=== PATIENT | female | born 1945 | race Two or more races ===

== ENCOUNTER 2016-06-29 17:07 | Emergency (ER) | payer OTHER ==
[~2016-06-29] VITALS: Ht 149.9 cm; Wt 55.8 kg
[2016-06-29 18:31] VITALS: BP 141/59
[2016-06-29] MEDS ORDERED: TYLENOL EXTRA500 MG ORAL (18:59)
--- NOTE | 2016-06-29 18:59 | Emergency Room Report ---
History of Present Illness General Chief Complaint: Head Injury Source: Patient Present Illness HPI 71-year-old female presents to emergency Department complaining of 8 of 10 in severity headache localized to the left frontal area, in addition to dizziness status post head injury while at work. Patient reports that she was kicked in the head by a large kickball she experienced dizziness and headache shortly after denies nausea or vomiting. Patient denies taking blood thinning medications. Patient has a history of hypertension, and high cholesterol. Pt reports being given two advil at work and that she believes it made her VASQUEZ worse. Patient denies weakness in the extremities, loss of consciousness, or bleeding. Denies numbness tingling or loss of sensation or gross motor movements of the extremities, incontinence of bowel or bladder. Denies CP, Palpitations, LOC, AMS, dizziness, Changes in Vision, Sensation, paresthesias, or a sudden severe headache. Pt also complains of cough x 4 days with mild phlegm intermittently, denies fevers or chills, reports runny nose. Allergies: Coded Allergies: ALCOHOL (Verified Allergy, Unknown, 06/29/16) IODINE (Verified Allergy, Unknown, 06/29/16) SULFA (SULFONAMIDE ANTIBIOTICS) (Unverified Allergy, Unknown, 06/29/16) Uncoded Allergies: SULFA (Allergy, Unknown, 06/29/16) Patient History Past Medical History: see triage record Past Surgical History: none Pertinent Family History: none Immunizations: UTD Reviewed Nursing Documentation: PMH: Agreed, PSxH: Agreed Nursing Documentation-PMH Past Medical History: No History, Except For Hx Hypertension: Yes Hx Diabetes: No Hx Neurological Problems: Yes - Neuropathy Review of Systems All Other Systems: negative except mentioned in HPI Physical Exam Vital Signs Date Time Temp Pulse Resp B/P Pulse Ox O2 Delivery O2 Flow Rate FiO2 06/29/16 17:20 97.5 72 16 170/73 97 Room Air Sp02 EP Interpretation: reviewed, abnormal - elevated BP 170/93 General Appearance: no apparent distress, alert, GCS 15, non-toxic Head: normocephalic, other - TTP to the left parietal area, no obvious hematomas or swelling. Eyes: bilateral eye PERRL, bilateral eye normal inspection ENT: hearing grossly normal, normal pharynx, no angioedema, normal voice, TMs + canals normal, uvula midline, moist mucus membranes Neck: full range of motion, supple/symm/no masses Respiratory: chest non-tender, lungs clear, normal breath sounds, no respiratory distress, no wheezing, speaking full sentences Cardiovascular #1: regular rate, rhythm, no edema, normal capillary refill Musculoskeletal: back normal, gait/station normal, normal range of motion, tender - TTP to the left parietal region of scalp. Neurologic: alert, oriented x3, responsive, motor strength/tone normal, sensory intact, cerebellar normal, normal gait, speech normal, no pronator Psychiatric: judgement/insight normal, memory normal, mood/affect normal, no suicidal/homicidal ideation Skin: normal color, no rash, warm/dry, well hydrated Lymphatic: no adenopathy Medical Decision Making PA Attestation Dr. Espino is my supervising Physician whom patient management has been discussed with. Diagnostic Impression: Primary Impression: Head contusion Qualified Codes: S00.83XA - Contusion of other part of head, initial encounter ER Course 71-year-old female presents to emergency Department complaining of 8 of 10 in severity headache localized to the left frontal area, in addition to dizziness status post head injury while at work. Patient reports that she was kicked in the head by a large kickball she experienced dizziness and headache shortly after denies nausea or vomiting. Patient denies taking blood thinning medications. Patient has a history of hypertension, and high cholesterol. Patient denies weakness in the extremities, loss of consciousness, or bleeding. Pt reports being given two advil at work and that she believes it made her VASQUEZ worse. -Pt also complains of cough x 4 days with mild phlegm intermittently, denies fevers or chills, reports runny nose. Ddx considered but are not limited to Fracture, dislocation, contusion, concussion Sprain/Strain/Spasm, subdural hematoma, URI, pneumonia, asthma/copd Vital signs: are WNL, pt. is afebrile H&PE are most consistent with contusion, no evidence of focal neurological deficit, no loss of consciousness. Pt also has cough, no evidence of pneumonia or asthma/copd ORDERS: none required at this time. PE and HPI do not indicate CT at this time. ED INTERVENTIONS: -650mg Tylenol PO d/w pt results of imaging, and to avoid advil with future head injuries, d/w pt signs and symptoms that would indicate prompt return to the ED. DISCHARGE: At this time pt. is stable for d/c to home. Will provide printed patient care instructions, and any necessary prescriptions. Care plan and follow up instructions have been discussed with the patient prior to discharge. Last Vital Signs Date Time Temp Pulse Resp B/P Pulse Ox O2 Delivery O2 Flow Rate FiO2 06/29/16 18:31 98.0 69 15 141/59 99 Room Air Disposition: HOME, SELF-CARE Condition: Stable Scripts D-Methorphan Hb/Prometh Hcl* (PROMETHAZINE-DM SYRUP*) 118 Ml Syrup 5 ML ORAL Q6H Y for For Cough, #118 ML 0 Refills Prov: Isela Pace 06/29/16 Acetaminophen* (TYLENOL EXTRA STRENGTH*) 500 Mg Tablet 500 MG ORAL Q6H, #30 TAB 0 Refills Prov: Isela Pace 06/29/16 Patient Instructions: Contusion, [id number] Additional Instructions: Take medications as directed. Follow up with PCP in 3-5 days Return sooner to ED if new symptoms occur, or current symptoms become worse. - Please note that this Emergency Department Report was dictated using [employer] technology software, occasionally this can lead to erroneous entry secondary to interpretation by the dictation equipment. Isela Pace Jun 29, 2016 18:59
[2016-06-29] MEDS ORDERED: PROMETHAZINE-D118 ML ORAL (19:16)
--- NOTE | 2016-06-30 08:58 | Diagnostic Imaging Report ---
Indications: Head trauma, head pain Technique: Spiral acquisitions obtained through the brain. Angled axial and coronal 5 x 5 mm slices were reconstructed. Total dose length product 1333 mGycm. CTDI vol(s) 70 mGy Comparison: None Findings: There are is mild age-related enlargement of ventricles and extra-axial CSF spaces. There is mild periventricular deep white matter chronic ischemic change. Old lacunar infarcts are seen in the anterior limb of left internal capsule, the left periventricular deep white matter, and equivocally in the right basal ganglia region. Small density in the roof of the third ventricle likely represents a small colloid cyst. No acute intracranial bleed or edema, mass effect, or midline shift. The calvarium is intact. There is minimal ethmoid and maxillary sinus mucosal disease. Impression: Chronic and age-related changes as, old lacunar infarcts, as described Negative for acute intracranial bleed or mass effect Third ventricular roof small colloid cysts incidentally noted Sinus disease, minimal This agrees with the preliminary interpretation provided overnight by Dr. Luna The CT scanner at [facility] is accredited by the [employer] and the scans are performed using protocols designed to limit radiation exposure to as low as reasonably achievable to attain images of sufficient resolution adequate for diagnostic evaluation.
== END 2016-06-29 19:15 | disposition home or self-care (01) ==
LOC: EMR 19:12
DX: S00.83XA Contusion of other part of head, initial encounter (principal); I10 Essential (primary) hypertension; G62.9 Polyneuropathy, unspecified; Z88.2 Allergy status to sulfonamides; Z91.041 Radiographic dye allergy status; Z91.048 Other nonmedicinal substance allergy status; E78.00 Pure hypercholesterolemia, unspecified; W21.09XA Struck by other hit or thrown ball, initial encounter; Y92.219 Unspecified school as the place of occurrence of the external cause; Y99.0 Civilian activity done for income or pay
CPT/HCPCS: 70450; 99284